=== PATIENT | female | born 1955 | race Two or more races ===

== ENCOUNTER 2021-11-12 13:53 | Inpatient (IN) | payer OTHER, MEDICAID ==
[~2021-11-12] VITALS: Ht 152.4 cm; Wt 75.4 kg
[2021-11-12] MEDS ORDERED: SODIUM CHLORIDE 0.9% 1,000 ML IVB ONE (14:15)
[2021-11-12] MEDS ORDERED: PROCHLORPERAZINE EDISYLATE 5 MG/ML 2ML VIAL IV ONE (14:15)
[2021-11-12 15:58] LABS: BUN/Creatinine Ratio 12.9; Calcium 9.5 mg/dL (8.5-10.1)
[2021-11-12 15:59] LABS: Basophils # (auto) 0.1 10 ^3/uL (0-0.2); Basophils % (auto) 0.8 % (0.0-2.0); Eosinophils # (auto) 0.1 10 ^3/uL (0-0.8); Eosinophils % (auto) 1.6 % (0.0-7.0); Hematocrit 45.2 % (36.0-46.0); Hemoglobin 14.9 g/dL (12.2-16.2); Lymphocytes # (auto) 1.4 10 ^3/uL (0.4-5.4); Lymphocytes % (auto) 18.2 % (10.0-50.0); Mean Corpuscular Hemoglobin 27.9 pg (28.0-32.0); Mean Corpuscular Volume 84.6 fL (80.0-100.0); Monocytes # (auto) 0.3 10 ^3/uL (0-1.3); Monocytes % (auto) 3.6 % (0.0-12.0); Neutrophils % (auto) 75.8 % (37.0-80.0); Red Blood Cells 5.34 10^6/uL (4.0-5.20); Red Cell Distribution Width 14.4 % (11.8-14.3); White Blood Cell 7.9 10^3/uL (4.4-10.8)
[2021-11-12 16:01] LABS: Bilirubin, Total 0.7 mg/dL (0.2-1.0); Total Protein 7.7 g/dL (6.4-8.2)
[2021-11-12] MEDS ORDERED: BACITRACIN INJ 50000 UNIT VIAL TOP ONE (17:30)
[2021-11-12] MEDS ORDERED: NITROGLYCERIN 0.4 MG SL TAB SL PRN (18:00)
[2021-11-12] MEDS ORDERED: MORPHINE SULFATE INJ 2 MG/ml SYRG IV PRN ×3 (18:00→21:15)
[2021-11-12] MEDS ORDERED: hydrALAZINE HCL 20 MG/ML VL IV PRN (18:15)
[2021-11-12] MEDS ORDERED: ONDANSETRON HCL 4 MG/2 ML VIAL IV PRN (18:15)
[2021-11-12] MEDS ORDERED: LABETALOL HCL 5 MG/ML 4ML SYRINGE IV PRN (18:15)
[2021-11-12] MEDS ORDERED: PANTOPRAZOLE 40 MG/10 ML VIAL INJ IV ONE (18:15)
[2021-11-12] MEDS: LACTATED RINGER'S 1,000 ML IV SCH (18:33)
[2021-11-12] MEDS ORDERED: LORazepam 0.5 MG TAB PO PRN (21:15)
[2021-11-12] MEDS ORDERED: DOCUSATE SOD 100 MG CAP PO PRN (21:15)
[2021-11-12 21:52] LABS: Magnesium 2.3 mg/dL (1.6-2.6)
[2021-11-12 22:50] LABS: Urine Specific Gravity 1.016 (1.001-1.035)
[2021-11-12 22:51] LABS: Urine Blood Trace /uL (Negative); Urine WBC 0-2 /hpf (0 - 5)
[2021-11-12 22:52] LABS: Urine Bacteria NONE SEEN /hpf (None Seen); Urine Mucus FEW (None Seen)
[2021-11-12 23:20] VITALS: BP 152/80
[2021-11-12 23:40] LABS: INR 1.09 (0.9-1.15); Partial Thromboplastin Time 29.3 sec (23.6-33.0)
[2021-11-12] MEDS: metroNIDAZOLE 500MG/100ML 100 ML IV SCH (23:41)
[2021-11-13 05:00] VITALS: BP 123/78
[2021-11-13 06:10] LABS: Basophils # (auto) 0 10 ^3/uL (0-0.2); Basophils % (auto) 0.4 % (0.0-2.0); Eosinophils # (auto) 0 10 ^3/uL (0-0.8); Eosinophils % (auto) 0.4 % (0.0-7.0); Hematocrit 37.6 % (36.0-46.0); Hemoglobin 12.9 g/dL (12.2-16.2); Lymphocytes # (auto) 2.2 10 ^3/uL (0.4-5.4); Mean Corpuscular Hemoglobin 28.7 pg (28.0-32.0); Mean Corpuscular Hgb Conc. 34.2 g/dL (32.0-36.0); Mean Corpuscular Volume 83.8 fL (80.0-100.0); Monocytes # (auto) 0.4 10 ^3/uL (0-1.3); Monocytes % (auto) 6.3 % (0.0-12.0); Neutrophils # (auto) 4.4 10 ^3/uL (1.6-8.6); Neutrophils % (auto) 61.9 % (37.0-80.0); Nucleated Red Blood Cells % 0.1 %; Red Blood Cells 4.49 10^6/uL (4.0-5.20); Red Cell Distribution Width 14.4 % (11.8-14.3); White Blood Cell 7.1 10^3/uL (4.4-10.8)
[2021-11-13 06:26] LABS: Magnesium 2.2 mg/dL (1.6-2.6); Potassium 3.6 mmol/L (3.5-5.1)
[2021-11-13 06:29] LABS: INR 1.07 (0.9-1.15); Partial Thromboplastin Time 29.8 sec (23.6-33.0)
[2021-11-13 06:33] LABS: Albumin 3.4 g/dL (3.4-5.0); Bilirubin, Total 0.6 mg/dL (0.2-1.0); CRP High Sensitivity 0.1 mg/dL (< 0.3); Calcium 8.4 mg/dL (8.5-10.1); Phosphorus 2.8 mg/dL (2.5-4.90); Total Protein 6.6 g/dL (6.4-8.2)
[2021-11-13] MEDS: metroNIDAZOLE 500MG/100ML 100 ML IV SCH ×3 (06:42→21:37)
[2021-11-13] MEDS: LACTATED RINGER'S 1,000 ML IV SCH ×2 (07:35→21:46)
[2021-11-13 08:24] VITALS: BP 152/80
[2021-11-13] MEDS: cefTRIAXone 1GM/50ML D5W 50 ML IV SCH (08:58)
[2021-11-13] MEDS ORDERED: ENOXAPARIN SOD 40 MG/0.4 ML SYRINGE SC SCH (10:00)
[2021-11-13] MEDS ORDERED: PANTOPRAZOLE 40 MG/10 ML VIAL INJ IV SCH (10:00)
[2021-11-13] MEDS ORDERED: LABETALOL HCL 5 MG/ML 4ML SYRINGE IV PRN (13:15)
[2021-11-13 13:20] VITALS: BP 147/76
[2021-11-13 16:48] VITALS: BP 137/72
[2021-11-13 22:36] VITALS: BP 138/77
[2021-11-14] MEDS: metroNIDAZOLE 500MG/100ML 100 ML IV SCH ×3 (05:15→22:19)
[2021-11-14 05:19] VITALS: BP 144/83
[2021-11-14 06:52] LABS: Basophils # (auto) 0 10 ^3/uL (0-0.2); Basophils % (auto) 0.6 % (0.0-2.0); Eosinophils # (auto) 0 10 ^3/uL (0-0.8); Eosinophils % (auto) 0.3 % (0.0-7.0); Hematocrit 37.4 % (36.0-46.0); Lymphocytes # (auto) 1.7 10 ^3/uL (0.4-5.4); Lymphocytes % (auto) 23.4 % (10.0-50.0); Mean Corpuscular Hgb Conc. 34.9 g/dL (32.0-36.0); Monocytes # (auto) 0.5 10 ^3/uL (0-1.3); Monocytes % (auto) 7.4 % (0.0-12.0); Neutrophils # (auto) 4.9 10 ^3/uL (1.6-8.6); Neutrophils % (auto) 68.3 % (37.0-80.0); Nucleated Red Blood Cells % 0.1 %; Red Cell Distribution Width 14.4 % (11.8-14.3); White Blood Cell 7.2 10^3/uL (4.4-10.8)
[2021-11-14 07:13] LABS: Albumin 3.3 g/dL (3.4-5.0); Calcium 8.5 mg/dL (8.5-10.1); Potassium 3.6 mmol/L (3.5-5.1)
[2021-11-14 07:15] LABS: BUN/Creatinine Ratio 12.5; Bilirubin, Total 0.7 mg/dL (0.2-1.0); Total Protein 6.6 g/dL (6.4-8.2)
[2021-11-14] MEDS: cefTRIAXone 1GM/50ML D5W 50 ML IV SCH (09:00)
[2021-11-14] MEDS ORDERED: ceFAZolin 1GM/50ML 100 ML IV ONE (09:28)
[2021-11-14 09:41] VITALS: BP 149/88
[2021-11-14 09:41] LABS: Urine Bacteria FEW /hpf (None Seen); Urine Blood Negative /uL (Negative); Urine Specific Gravity 1.011 (1.001-1.035); Urine WBC 1 /hpf (0 - 5)
[2021-11-14] MEDS ORDERED: BUPIVACAINE W/ EPINEPH 0.25% INJ 50ML MDV ONE (10:18)
[2021-11-14] MEDS ORDERED: SUCCINYLCHOLINE CHLORIDE 20 MG/ML 10ML VIAL IV ONE (10:19)
[2021-11-14] MEDS ORDERED: fentaNYL CITRATE 100 MCG/2 ML VL ONE (10:27)
[2021-11-14] MEDS ORDERED: MIDAZOLAM HCL 2MG/2ML 2ml VIAL (1mg/ml) ONE (10:27)
[2021-11-14] MEDS ORDERED: MEPERIDINE HCL (50 MG/ML) 1 ML VIAL ONE (10:28)
[2021-11-14 10:32] LABS: Alcohol, Urine < 3.0 mg/dL (0-10); Amphetamine Screen, Urine NEGATIVE (NEGATIVE); Barbiturate Scree,Urine NEGATIVE (NEGATIVE); Benzodiazephine Screen, Urine NEGATIVE (NEGATIVE); Cannabinoid Screen, Urine NEGATIVE (NEGATIVE); Cocaine Screen, Urine NEGATIVE (NEGATIVE); Opiate Scree,Urine NEGATIVE (NEGATIVE); Phencyclidine Screen, Urine NEGATIVE (NEGATIVE); Protein, Urine 13.2 mg/dL (0.0-11.9)
[2021-11-14] MEDS ORDERED: DexAMETHasone SOD PHOS 10MG/1ML VIAL INJ ONE (10:37)
[2021-11-14] MEDS ORDERED: PROPOFOL 10 MG/ML 20 ML IV ONE (10:37)
[2021-11-14] MEDS ORDERED: ROCURONIUM 10MG/ML 10ML VIAL IV ONE (10:38)
[2021-11-14] MEDS ORDERED: ONDANSETRON HCL 4 MG/2 ML VIAL ONE (11:07)
[2021-11-14] MEDS ORDERED: SUGAMMADEX 200mg/2ml Vial (100MG/ML) IV ONE (11:18)
[2021-11-14] MEDS ORDERED: ACETAMINOPHEN/CODEINE#3 (300/30mg) TAB PO PRN (11:30)
[2021-11-14] MEDS ORDERED: ONDANSETRON HCL 4 MG/2 ML VIAL IV PRN ×2 (11:30→11:45)
[2021-11-14] MEDS ORDERED: HYDROmorphone HCL 2 MG/ML VL/or syr IV PRN ×2 (11:30→14:45)
[2021-11-14] MEDS ORDERED: D5W/SOD CHL 0.45%/KCL 20MEQ 1,000 ML IV SCH (11:30)
[2021-11-14] MEDS ORDERED: MIDAZOLAM HCL 2MG/2ML 2ml VIAL (1mg/ml) IV PRN (11:45)
[2021-11-14] MEDS ORDERED: MORPHINE SULFATE 4 MG/ML SYR/VIAL IV PRN (11:45)
[2021-11-14] MEDS ORDERED: ePHEDrine SULFATE 50 MG/ML AMP IV PRN (11:45)
[2021-11-14] MEDS ORDERED: HYDROmorphone HCL 2 MG/ML VL/or syr ONE (11:49)
[2021-11-14] MEDS: HYDROmorphone HCL 2 MG/ML VL/or syr IV PRN ×3 (11:50→12:20)
[2021-11-14] MEDS: LABETALOL HCL 5 MG/ML 4ML SYRINGE IV PRN ×3 (12:10→13:05)
[2021-11-14] MEDS: hydrALAZINE HCL 20 MG/ML VL IV PRN ×4 (12:40→13:30)
[2021-11-14] MEDS: HYDROcodone-ACET 5/325MG TAB PO PRN (14:34)
[2021-11-14 16:36] VITALS: BP 140/72
[2021-11-14] MEDS ORDERED: cefTRIAXone 1GM/50ML D5W 50 ML IV ONE (18:00)
[2021-11-14] MEDS: D5W/SOD CHL 0.45%/KCL 20MEQ 1,000 ML IV SCH (18:48)
[2021-11-14 22:13] VITALS: BP 130/76
[2021-11-15] MEDS: HYDROcodone-ACET 5/325MG TAB PO PRN (02:35)
[2021-11-15 04:59] VITALS: BP 149/79
[2021-11-15] MEDS: D5W/SOD CHL 0.45%/KCL 20MEQ 1,000 ML IV SCH (05:38)
[2021-11-15 05:39] LABS: Basophils # (auto) 0 10 ^3/uL (0-0.2); Basophils % (auto) 0.1 % (0.0-2.0); Eosinophils # (auto) 0 10 ^3/uL (0-0.8); Hematocrit 35.2 % (36.0-46.0); Hemoglobin 12.3 g/dL (12.2-16.2); Lymphocytes # (auto) 1.1 10 ^3/uL (0.4-5.4); Lymphocytes % (auto) 10.1 % (10.0-50.0); Mean Corpuscular Hemoglobin 29.1 pg (28.0-32.0); Mean Corpuscular Volume 83.1 fL (80.0-100.0); Monocytes # (auto) 0.8 10 ^3/uL (0-1.3); Neutrophils # (auto) 9.1 10 ^3/uL (1.6-8.6); Neutrophils % (auto) 82.8 % (37.0-80.0); Red Blood Cells 4.24 10^6/uL (4.0-5.20); Red Cell Distribution Width 14.7 % (11.8-14.3)
[2021-11-15] MEDS: metroNIDAZOLE 500MG/100ML 100 ML IV SCH ×2 (05:39→13:54)
[2021-11-15 05:54] LABS: Albumin 3.2 g/dL (3.4-5.0); BUN/Creatinine Ratio 9.3; Calcium 8.2 mg/dL (8.5-10.1); Potassium 3.6 mmol/L (3.5-5.1)
[2021-11-15 05:56] LABS: Bilirubin, Total 0.6 mg/dL (0.2-1.0); Total Protein 6.4 g/dL (6.4-8.2)
[2021-11-15 08:54] VITALS: BP 134/62
[2021-11-15] MEDS ORDERED: cefTRIAXone 1GM/50ML D5W 50 ML IV SCH (09:00)
[2021-11-15] MEDS ORDERED: PANTOPRAZOLE 40 MG/10 ML VIAL INJ IV SCH (10:00)
[2021-11-15 12:57] VITALS: BP 126/62
[2021-11-15 17:02] VITALS: BP 140/74
== END 2021-11-15 19:20 | disposition home or self-care (01) | DRG 418 ==
LOC: ER 13:53 → EDBD 13:53 → OVERFLOW 17:48 → WEST WING 23:02
PROVIDERS: ADMIT Hospitalist; ATTEND Internal Medicine
PROC: 0FT44ZZ Resection of Gallbladder, Percutaneous Endoscopic Approach (ICD-10-PCS; principal; 2021-11-14 10:25)
DX: K80.00 Calculus of gallbladder with acute cholecystitis without obstruction (principal); I16.9 Hypertensive crisis, unspecified; E66.01 Morbid (severe) obesity due to excess calories; E78.00 Pure hypercholesterolemia, unspecified; E78.5 Hyperlipidemia, unspecified; K57.90 Diverticulosis of intestine, part unspecified, without perforation or abscess without bleeding; K83.8 Other specified diseases of biliary tract; N20.0 Calculus of kidney; Z20.822 Contact with and (suspected) exposure to COVID-19; Z68.32 Body mass index [BMI] 32.0-32.9, adult
CPT/HCPCS: 36415; 70450; 71045; 74176; 74181; 76705; 78226; 80053; 80061; 80307; 81001; 82550; 82728; 83036; 83615; 83690; 83735; 83880; 84100; 84156; 84443; 84484; 85025; 85379; 85610; 85652; 85730; 86141; 86850; 86900; 86901; 87040; 87086; 93005; 96361; 96365; 96375; C9113; G0378; J0330; J0690; J0696; J1100; J2250; J2405; J2704; J3490

== ENCOUNTER 2023-04-20 21:37 | Emergency (ER) | payer OTHER, MEDICAID ==
[~2023-04-20] VITALS: Ht 152.4 cm; Wt 62.2 kg
[2023-04-21] MEDS ORDERED: IBUPROFEN 600 MG TAB PO ONE (00:15)
[2023-04-21] MEDS ORDERED: IBUP-1454 PO (00:59)
[2023-04-21] MEDS ORDERED: METH-1181 PO (00:59)
[2023-04-21] MEDS ORDERED: DICL1GEL73 TD (01:29)
[2023-04-21 01:37] VITALS: BP 137/88; PULSE 80; RESP 16; TEMP 98; O2SAT 97
== END 2023-04-21 01:38 | disposition home or self-care (01) ==
LOC: ER 21:37
DX: S16.1XXA Strain of muscle, fascia and tendon at neck level, initial encounter (principal); S09.90XA Unspecified injury of head, initial encounter; M25.561 Pain in right knee; E78.5 Hyperlipidemia, unspecified; Z79.1 Long term (current) use of non-steroidal anti-inflammatories (NSAID); Z79.899 Other long term (current) drug therapy; V43.52XA Car driver injured in collision with other type car in traffic accident, initial encounter; Y93.89 Activity, other specified; Y92.410 Unspecified street and highway as the place of occurrence of the external cause; Y99.8 Other external cause status
CPT/HCPCS: 70450; 72125; 73562

== ENCOUNTER 2025-04-22 10:30 | Emergency (ER) | payer OTHER, MEDICAID ==
[~2025-04-22] VITALS: Ht 152.4 cm; Wt 66.4 kg
[~2025-04-22 10:30] MED LIST: DICL1GEL73 TD; IBUP-1454 PO; METH-1181 PO
--- NOTE | 2025-04-22 11:21 | ED.PDOC ---
GI ASSESSMENT HPI Comments La Youngblood is a 69-year-old female with past medical history of GERD, dyslipidemia and essential hypertension. The patient came today to the ED with chief complain of 3 days of epigastric abdominal pain, 7/10, continue, burning like, no irradiates, associated with nausea; the patient took "peptobismol' and "apple cidar vinegar" without improvement. On further questioning the patient reports she has an appointment for GI for GERD. Today, the epigastric pain worsen to 8/10 and BP was >200/100 at home, this prompted her visit to the ED. The patient denies headache, visual disturbances, chest pain, palpitation, back pain, numbness, tingling, weakness, diarrhea, constipation, vomit, fever, chills or other symptoms. In the ED BP: 204/130mmHg. HR: 88bpm. EKG: Sinus rhythm, RSR in V1 and V2 , RVH, no ST elevation or depression. The patient will be further assessed. Chief Complaint: Abdominal Pain Time Seen by MD: 10:32 Reviewed Notes: Nurses Notes, Medications, Allergies Allergies: Coded Allergies: NO KNOWN ALLERGIES (Unverified , 05/02/23) Home Meds Active Scripts Diclofenac Sodium (Topical) (Diclofenac Sodium) 1 % Gel, 1 % TD QID PRN for 30 Days, #1 GEL Prov:MOISE NORMANP 04/21/23 Ibuprofen (Ibuprofen) 600 Mg Tab, 1 TAB PO TID PRN for 14 Days, #42 TAB Prov:MOISE NORMAN 04/21/23 Methocarbamol (Methocarbamol) 500 Mg Tab, 500 MG PO TID PRN for 14 Days, #42 TAB Prov:MOISE NORMAN 04/21/23 Information Source: Patient Mode of Arrival: Ambulatory Timing: Days Duration: Since onset Quality: Burning Severity: Mild Recent: None Associated sign and symptoms: Nausea Past Medical History PAST MEDICAL HISTORY: GERD, High Lipids, HTN Surgical History: Cholecystectomy RECREATIONAL THERAPY AIDE History: Denies all RECREATIONAL THERAPY AIDE Hx Family History Family History: Reviewed,noncontributory to illness Social History Smoker: Non-Smoker Alcohol: Denies ETOH Use Drugs: Denies Drug Use Constitutional: denies: chills, diaphoresis, fatigue, fever, malaise, sweats, weakness, others EENTM: denies: blurred vision, double vision, ear bleeding, ear discharge, ear drainage, ear pain, ear ringing, eye pain, eye redness, hearing loss, mouth pain, mouth swelling, nasal discharge, nose bleeding, nose congestion, nose pain, photophobia, tearing, throat pain, throat swelling, voice changes, others Respiratory: denies: cough, hemoptysis, orthopnea, SOB at rest, shortness of breath, SOB with excertion, stridor, wheezing, others Cardiovascular: denies: chest pain, dizzy spells, diaphoresis, Dyspnea on exertion, edema, irregular heart beat, left arm pain, lightheadedness, palpitations, PND, syncope, others Gastrointestinal: reports: abdominal pain, nausea; denies: abdomen distended, blood streaked bowels, constipated, diarrhea, dysphagia, difficulty swallowing, hematemesis, melena, poor appetite, poor fluid intake, rectal bleeding, rectal pain, vomiting, others Genitourinary: denies: abnormal vagina bleeding, burning, dyspareunia, dysuria, flank pain, frequency, hematuria, incontinence, pain, , vagina discharge, urgency, others Neurological: denies: dizziness, fainting, headache, left sided numbness, left sided weakness, numbness, paresthesia, pre-existing deficit, right sided numbness, right sided weakness, seizure, speech problems, tingling, tremors, weakness, others Musculoskeletal: denies: back pain, gout, joint pain, joint swelling, muscle pain, muscle stiffness, neck pain, others Integumetry: denies: bruises, change in color, change in hair/nails, dryness, laceration, lesions, lumps, rash, wounds, others Allergic/Immunocompromised: denies: Difficulty Healing, Frequent Infections, Hives, Itching, others Hematologic/Lymphatic: denies: anemia, blood clots, easy bleeding, easy bruising, swollen glands, others Endocrine: denies: excessive hunger, excessive sweating, excessive thirst, excessive urination, flushing, intolerance to cold, intolerance to heat, unexplained weight gain, unexplained weight loss, others Psychiatric: denies: anxiety, bipolar disorder, depression, hopeless, panic disorder, schizophrenia, sleepless, suicidal, others Physical Exam Exam Comments Alert, Oriented x3. General Appearance: No Apparent Distress, Normal HEENT: Normal ENT Inspection, Pharynx Normal, TMs Normal Neck: Full Range of Motion, Non-Tender, Normal, Normal Inspection Respiratory: Chest Non-Tender, Lungs Clear, No Accessory Muscle Use, No Respiratory Distress, Normal Breath Sounds Cardiovascular: No Edema, No JVD, No Murmur, No Gallop, Normal Peripheral Pulses, Regular Rate/Rhythm Breast Exam: Deferred Gastrointestinal: Normal Bowel Sounds, Soft, Tenderness (Epigastric area is tender to deep palpation. ) Genitalia: Deferred Pelvic: Deferred Rectal: Deferred Extremities: No calf tenderness, Normal capillary refill, Normal inspection, Normal range of motion, Non-tender, No pedal edema Musculoskeletal : Apperance: Normal Neurologic: Alert, theoretical physicist II-XII nml as Tested, No Motor Deficits, Normal Affect, Normal Mood, No Sensory Deficits, Other (Sensitivity, motor and Strength preserved, no neuronal deficit on face or extremities. Cranial nerves preserved. ) Cerebellar Function: Normal Reflexes: Normal Skin: Dry, Normal Color, Warm Lymphatic: No Adenopathy EKG EKG : Pulse Rate (adult): 79 Lizella: Normal Cardiac Rhythm: NSR Hypertrophy: RVH Comments RSR' in V1 and V2 Was a procedure done? Was a procedure done?: No GI differential Dx Differential Diagnosis: Gastritis/PUD Other Differential Diagnosis GERD. X-Ray, Labs, Meds, VS Vital Signs Date Time Temp Pulse Resp B/P (MAP) Pulse Ox O2 Delivery O2 Flow Rate FiO2 04/22/25 12:23 67 18 154/74 (100) 97 04/22/25 11:59 79 04/22/25 11:41 77 18 98 Room Air 04/22/25 11:41 98.2 77 18 177/100 (125) 98 98.2 04/22/25 11:30 154/74 04/22/25 10:41 79 04/22/25 10:32 97.7 88 18 204/130 100 97.7 Lab Test 04/22/25 13:56 04/22/25 12:04 Range/Units Troponin I High Sensitivity 3 L 3 L </=34 ng/L White Blood Count 5.5 4.4-10.8 10^3/uL Red Blood Count 4.89 4.0-5.20 10^6/uL Hemoglobin 14.2 12.2-16.2 g/dL Hematocrit 42.7 36.0-46.0 % Mean Corpuscular Volume 87.3 80.0-100.0 fL Mean Corpuscular Hemoglobin 29.0 28.0-32.0 pg Mean Corpuscular Hemoglobin Concent 33.2 32.0-36.0 g/dL Red Cell Distribution Width 14.8 H 11.8-14.3 % Platelet Count 169 140-450 10^3/uL Mean Platelet Volume 9.8 6.9-10.8 fL Neutrophils (%) (Auto) 60.1 37.0-80.0 % Lymphocytes (%) (Auto) 31.8 10.0-50.0 % Monocytes (%) (Auto) 6.6 0.0-12.0 % Eosinophils (%) (Auto) 0.9 0.0-7.0 % Basophils (%) (Auto) 0.6 0.0-2.0 % Neutrophils # (Auto) 3.3 1.6-8.6 10 ^3/uL Lymphocytes # (Auto) 1.8 0.4-5.4 10 ^3/uL Monocytes # (Auto) 0.4 0-1.3 10 ^3/uL Eosinophils # (Auto) 0 0-0.8 10 ^3/uL Basophils # (Auto) 0 0-0.2 10 ^3/uL Nucleated Red Blood Cells 0.0 % Sodium Level 140 136-145 mmol/L Potassium Level 3.8 3.5-5.1 mmol/L Chloride Level 105 98-107 mmol/L Carbon Dioxide Level 26 20-31 mmol/L Anion Gap 9 5-15 Blood Urea Nitrogen 11 9-23 mg/dL Creatinine 0.72 0.550-1.02 mg/dL Glomerular Filtration Rate Calc 89 >90 mL/min BUN/Creatinine Ratio 15.3 10.0-20.0 Serum Glucose 77 74-106 mg/dL Calcium Level 8.7 8.7-10.4 mg/dL Current Medications Medications (Trade) Dose Ordered Sig/Mike Route Start Time Stop Time Status Last Admin Pantoprazole Sodium (Protonix Tablet) 40 mg ONCE ONCE PO 04/22/25 11:30 04/22/25 11:31 DC 04/22/25 11:47 X-Ray, Labs, Meds, VS Comment 11:56 The patient has been re-evaluated VS: BP:177/100mmHg HR: 77bpm CBC, BMP, Troponin are still pending at this time 13:03 The patient has veen re-evaluated Epigastric pain improved after protonics BP has improved to 154/74 CBC and BMP: unremarkable Hb: 14.2 Troponin: 3 Time of 1ST Reevaluation: 11:56 Reevaluation 1ST: Improved Time of 2ND Reevaluation: 13:03 Reevaluation 2ND: Improved Patient Education/Counseling: Diagnosis, Treatment, Prognosis, Need For Follow Up Family Education/Counseling: No Family Present SEPSIS Sepsis Screen Date sepsis recognized/suspect: Apr 22, 2025 Time Sepsis recognized/suspect: 103 Recent Procedure: No On Antibiotic Therapy: No Respiratory Rate >20: No Heart Rate >90: No Temp<36 C (96.8 F) or >38.3 C: No SBP <90 or MAP <65 mmHG: No New Acute Mental Status Change: No Is the patient on CPAP, BIPAP,: No Physician Orders Electrocardigram (04/22/25 10:36) Troponin-I Hs (04/22/25 14:17) Chest Xray 1 View (04/22/25 11:17) Electrocardigram (04/22/25 12:17) Electrocardigram (04/22/25 14:17) Urinalysis (04/22/25 11:17) Communication Order (04/22/25 11:25) Vital Signs Date Time Temp Pulse Resp B/P (MAP) Pulse Ox O2 Delivery O2 Flow Rate FiO2 04/22/25 12:23 67 18 154/74 (100) 97 04/22/25 11:59 79 04/22/25 11:41 77 18 98 Room Air 04/22/25 11:41 98.2 77 18 177/100 (125) 98 98.2 04/22/25 11:30 154/74 04/22/25 10:41 79 04/22/25 10:32 97.7 88 18 204/130 100 97.7 Laboratory Tests Test 04/22/25 12:04 White Blood Count 5.5 10^3/uL (4.4-10.8) Medications Medications Dose Ordered Sig/Mike Route Start Time Stop Time Status Last Admin Dose Admin Pantoprazole Sodium 40 mg ONCE ONCE PO 04/22/25 11:30 04/22/25 11:31 DC 04/22/25 11:47 Departure 1 Departure Time of Disposition: 13:33 Impression: Primary Impression: Gastritis Qualified Codes: K29.00 - Acute gastritis without bleeding Additional Impressions: GERD (gastroesophageal reflux disease) Qualified Codes: K21.9 - Gastro-esophageal reflux disease without esophagitis Hypertensive crisis Disposition: 01 HOME / SELF CARE / HOMELESS Condition: Good Additional Instructions: Please read all instructions provided in this packet carefully. You MUST follow-up with your primary care/family doctor in 1 to 2 days. If you are unable to see your primary care/family doctor, please return to our emergency room for re-assessment and re-evaluation in 1 to 2 days. Return to the emergency room here in our facility or to the nearest ER [facility] if your symptoms change or worsen. CONSULTATIONS: you MUST Follow-up for consultation as soon as possible with: -your specialist GI doctor in 1-2 days. You MUST call the consultants office yourself to make an appointment. You may need to arrange that through your insurance and/or your primary/family doctor. If you are unable to see the outreach consultant in 1 to 2 days, you must return to our emergency room (or any other ER of your choice) for re-assessment and re- evaluation. Adequate fluid hydration. Although you have been discharged from the Emergency Department, this does not mean that you have a "clean bill of health". No definitive diagnosis for your symptoms has been made today. It is possible that you are in the process of developing a serious illness. This is why you must return to the ED without fail if any new or worsening symptoms develop. e-Prescriptions Sucralfate (CARAFATE SUSP) 1 Gm/10 Ml Ss 10 ML PO BID for 5 Days, #100 ML 1 Refill Prov: TEODORA ALY MD 04/22/25 Pantoprazole Sodium Sesquihydr (Protonix) 40 Mg Tab 40 MG PO DAILY for 10 Days, #10 TAB Prov: TEODORA ALY MD 04/22/25 Discharged With: Self Comments Goals of care discussed with the patient > 35 min. Discussed plan of care with Dr. Aly Code status: Full code PCP: Dr. Stauffer Plan discussed with: Patient, the patient agrees with the plan. Critical Care Note Critical Care Time?: No Stability Stability form required: No Heart Score Heart Score: Heart Score Response (Comments) Value History N/A 0 EKG N/A 0 Age N/A 0 Risk Factors N/A 0 Troponin N/A 0 Total 0 MYKE DURAN Apr 22, 2025 11:21 TEODORA ALY MD Apr 22, 2025 14:48
[2025-04-22 11:41] VITALS: TEMP 98.2
--- NOTE | 2025-04-22 11:41 | DVH ---
CHEST RADIOGRAPH Indication: hypertensive urgency Technique: Single frontal view of the chest was obtained COMPARISON: CXR1 on DOS: 11/14/21, CHEST XRAY 1 VIEW on DOS: 11/14/21 FINDINGS: Lines and Tubes: None Lungs: Clear Pleura: No effusion. No pneumothorax. Cardiomediastinal contours: Unremarkable Bones: Unremarkable IMPRESSION: No acute disease.
[2025-04-22] MEDS: PANTOPRAZOLE 40 MG TAB PO ONE (11:47)
[2025-04-22 12:24] LABS: Hematocrit 42.7 % (36.0-46.0); Hemoglobin 14.2 g/dL (12.2-16.2); Mean Corpuscular Hemoglobin 29.0 pg (28.0-32.0); Mean Corpuscular Volume 87.3 fL (80.0-100.0); Nucleated Red Blood Cells % 0.0 %
[2025-04-22 12:32] LABS: Chloride 105 mmol/L (98-107); Potassium 3.8 mmol/L (3.5-5.1); Sodium 140 mmol/L (136-145)
[2025-04-22 12:33] LABS: Anion Gap 9 (5-15); Carbon Dioxide 26 mmol/L (20-31)
[2025-04-22 12:34] LABS: Calcium 8.7 mg/dL (8.7-10.4)
[2025-04-22 12:38] LABS: BUN/Creatinine Ratio 15.3 (10.0-20.0); Blood Urea Nitrogen 11 mg/dL (9-23); Glucose 77 mg/dL (74-106)
[2025-04-22] MEDS ORDERED: SUCR1SUS26 PO (14:48)
[2025-04-22] MEDS ORDERED: PANT40TA2 PO (14:48)
[2025-04-22 15:08] VITALS: BP 146/94; PULSE 84; RESP 18; O2SAT 97
--- NOTE | 2025-04-23 03:03 | ECG ---
[facility] Test Date: 2025-04-22 Test Time: 10:41:25 Pat Name: STEVEN MAYORGA Department: ED Room: Gender: F Wire Tester: JOVON : 1955 Requested By: MYKE DURAN Order Number: [id number] Reading MD: Oren Velasco Measurements Intervals Vantage Rate: 79 P: 54 PA: 143 QRS: 57 QRSD: 103 T: 45 QT: 438 QTc: 503 Interpretive Statements Sinus rhythm RSR' in V1 or V2, right VCD or RVH Prolonged QT interval Baseline wander in lead(s) I,II,aVR,V2 Electronically Signed On 04-23-2025 18:48:11 PDT by Oren Velasco Please click the below link to view image of tracing.
== END 2025-04-22 15:19 | disposition home or self-care (01) ==
LOC: ER 10:30
DX: K29.00 Acute gastritis without bleeding (principal); K21.9 Gastro-esophageal reflux disease without esophagitis; I16.9 Hypertensive crisis, unspecified; E78.5 Hyperlipidemia, unspecified; I10 Essential (primary) hypertension; Z90.49 Acquired absence of other specified parts of digestive tract; Z79.899 Other long term (current) drug therapy
CPT/HCPCS: 36415; 71045; 80048; 84484; 85025; 93005

== ENCOUNTER 2025-05-19 12:21 | Emergency (ER) | payer OTHER, MEDICAID ==
[~2025-05-19] VITALS: Ht 152.4 cm; Wt 66.6 kg
[~2025-05-19 12:21] MED LIST changes: +PANT40TA2 PO; +SUCR1SUS26 PO
[2025-05-19 12:23] VITALS: BP 148/86; PULSE 82; RESP 16; TEMP 97.9; O2SAT 97
--- NOTE | 2025-05-19 13:28 | ED.PDOC ---
PHARMACEUTICAL SALES SPECIALIST HPI Comments A 69 YEAR OLD FEMALE PRESENTS TO THE ED WITH COMPLAINT OF VAGINAL BLEEDING AND PELVIC CRAMPING. PATIENT STATES HE HAS BEEN EXPERIENCING VAGINAL BLEEDING AND PELVIC CRAMPING FOR THE PAST 4 DAYS. PATIENT REPORTS SHE HAS ALSO BEEN EXPERIENCING PAINFUL URINATION AND INCREASED URINARY FREQUENCY. PATIENT NOTES THAT SHE HAD THE SAME ISSUE IN THE PAST ABOUT 6 MONTHS AGO, BUT NOTES THAT IT WENT AWAY AND CAME BACK 4 DAYS AGO. PATIENT DENIES VAGINAL DISCHARGE, FLANK PAIN, FEVER, CHILLS, SHORTNESS OF BREATH, CHEST PAIN, ABDOMINAL PAIN, NAUSEA, VOMITING, HEADACHE, OR OTHER COMPLAINTS. NO OTHER SYMPTOMS OR MODIFYING FACTORS AT THIS TIME. PATIENT IS ALERT, ORIENTED X 4, AND HAS STEADY GAIT. Chief Complaint: Vaginal Bleed Time Seen by MD: 12:39 Reviewed Notes: Nurses Notes, Medications, Allergies Allergies: Coded Allergies: NO KNOWN ALLERGIES (Unverified , 05/02/23) Home Meds Active Scripts Naproxen (Naproxen) 500 Mg Tab, 500 MG PO BID, #30 TAB Prov:VIJI MOON 05/19/25 Sucralfate (CARAFATE SUSP) 1 Gm/10 Ml Ss, 10 ML PO BID for 5 Days, #100 ML 1 Refill Prov:TEODORA ALY MD 04/22/25 Pantoprazole Sodium Sesquihydr (Protonix) 40 Mg Tab, 40 MG PO DAILY for 10 Days, #10 TAB Prov:TEODORA ALY MD 04/22/25 Diclofenac Sodium (Topical) (Diclofenac Sodium) 1 % Gel, 1 % TD QID PRN for 30 Days, #1 GEL Prov:MOISE NORMAN 04/21/23 Ibuprofen (Ibuprofen) 600 Mg Tab, 1 TAB PO TID PRN for 14 Days, #42 TAB Prov:MOISE NORMAN 04/21/23 Methocarbamol (Methocarbamol) 500 Mg Tab, 500 MG PO TID PRN for 14 Days, #42 TAB Prov:MOISE NORMAN 04/21/23 Information Source: Patient Mode of Arrival: Ambulatory Timing: Days Prehospital treatment: None Severity: Moderate Vaginal Discharge: None Bleeding Quality: Bright Red Vaginal Mass: None Onset Of Mass/Bleeding: Spontaneous Sexual Activity: Neither Last Consensual [place]: Unknown Control: None Blood Type: Unknown Symptoms of Possible : None Associated Signs and Symptoms: Vaginal Bleeding Past Medical History PAST MEDICAL HISTORY: GERD, High Lipids, HTN Surgical History: Cholecystectomy RUBBER ENGRAVER History: Denies all RUBBER ENGRAVER Hx Family History Family History: Reviewed,noncontributory to illness Social History Smoker: Non-Smoker Alcohol: Denies ETOH Use Drugs: Denies Drug Use Lives In: Home Constitutional: denies: chills, diaphoresis, fatigue, fever, malaise, sweats, weakness, others EENTM: denies: blurred vision, double vision, ear bleeding, ear discharge, ear drainage, ear pain, ear ringing, eye pain, eye redness, hearing loss, mouth pain, mouth swelling, nasal discharge, nose bleeding, nose congestion, nose pain, photophobia, tearing, throat pain, throat swelling, voice changes, others Respiratory: denies: cough, hemoptysis, orthopnea, SOB at rest, shortness of breath, SOB with excertion, stridor, wheezing, others Cardiovascular: denies: chest pain, dizzy spells, diaphoresis, Dyspnea on exertion, edema, irregular heart beat, left arm pain, lightheadedness, palpitations, PND, syncope, others Gastrointestinal: denies: abdomen distended, abdominal pain, blood streaked bowels, constipated, diarrhea, dysphagia, difficulty swallowing, hematemesis, melena, nausea, poor appetite, poor fluid intake, rectal bleeding, rectal pain, vomiting, others Genitourinary: reports: abnormal vagina bleeding, pain (PELVIC CRAMPING); denies: burning, dyspareunia, dysuria, flank pain, frequency, hematuria, incontinence, , vagina discharge, urgency, others Neurological: denies: dizziness, fainting, headache, left sided numbness, left sided weakness, numbness, paresthesia, pre-existing deficit, right sided numbness, right sided weakness, seizure, speech problems, tingling, tremors, weakness, others Musculoskeletal: denies: back pain, gout, joint pain, joint swelling, muscle pain, muscle stiffness, neck pain, others Integumetry: denies: bruises, change in color, change in hair/nails, dryness, laceration, lesions, lumps, rash, wounds, others Allergic/Immunocompromised: denies: Difficulty Healing, Frequent Infections, Hives, Itching, others Hematologic/Lymphatic: denies: anemia, blood clots, easy bleeding, easy bruising, swollen glands, others Endocrine: denies: excessive hunger, excessive sweating, excessive thirst, excessive urination, flushing, intolerance to cold, intolerance to heat, unexplained weight gain, unexplained weight loss, others Psychiatric: denies: anxiety, bipolar disorder, depression, hopeless, panic disorder, schizophrenia, sleepless, suicidal, others All Other Systems: Reviewed and Negative Physical Exam General Appearance: No Apparent Distress, Normal HEENT: Normal ENT Inspection, PERRL/EOMI, Pharynx Normal, TMs Normal Neck: Full Range of Motion, Non-Tender, Normal, Normal Inspection Respiratory: Chest Non-Tender, Lungs Clear, No Accessory Muscle Use, No Respiratory Distress, Normal Breath Sounds Cardiovascular: No Edema, No JVD, No Murmur, No Gallop, Normal Peripheral Pulses, Regular Rate/Rhythm Breast Exam: Deferred Gastrointestinal: No Organomegaly, Non Tender, No Pulsatile Mass, Normal Bowel Sounds, Soft Genitalia: Deferred Pelvic: Normal External Exam, Vaginal Bleeding Rectal: Deferred Extremities: No calf tenderness, Normal capillary refill, Normal inspection, Normal range of motion, Non-tender, No pedal edema Musculoskeletal : Apperance: Normal Neurologic: Alert, roof tiler II-XII nml as Tested, No Motor Deficits, Normal Affect, Normal Mood, No Sensory Deficits Cerebellar Function: Normal Reflexes: Normal Skin: Dry, Normal Color, Warm Peripheral Pulses: 2+ carotid (R), 2+ carotid (L) Lymphatic: No Adenopathy Was a procedure done? Was a procedure done?: Yes Sedation Sedation?: No Pelvic Exam Vaginal Discharge: None Vaginal Lesions: None Vaginal Mass: None Bleeding Quality: Bright Red Cervix: os closed Notes SPECULUM EXAMINATION DONE. VAGINAL BLEEDING WAS NOTED, BUT NO BLOOD CLOTS WERE SEEN. Differential Diagnosis (RUBBER ENGRAVER) Vaginal Bleeding: Blood Loss Anemia, Myomatous Uterus, UTI, Vaginitis, Other (DYSFUNCTIONAL UTERINE FIBROID) Mass / Lesion: N/A Vaginal Discharge: UTI, N/A X-Ray, Labs, Meds, VS Vital Signs Date Time Temp Pulse Resp B/P (MAP) Pulse Ox O2 Delivery O2 Flow Rate FiO2 05/19/25 12:23 97.9 82 16 148/86 97 97.9 Lab Test 05/19/25 13:53 05/19/25 13:00 Range/Units White Blood Count 6.1 4.4-10.8 10^3/uL Red Blood Count 4.91 4.0-5.20 10^6/uL Hemoglobin 14.7 12.2-16.2 g/dL Hematocrit 44.1 36.0-46.0 % Mean Corpuscular Volume 89.9 80.0-100.0 fL Mean Corpuscular Hemoglobin 29.8 28.0-32.0 pg Mean Corpuscular Hemoglobin Concent 33.2 32.0-36.0 g/dL Red Cell Distribution Width 14.2 11.8-14.3 % Platelet Count 171 140-450 10^3/uL Mean Platelet Volume 9.4 6.9-10.8 fL Neutrophils (%) (Auto) 63.4 37.0-80.0 % Lymphocytes (%) (Auto) 28.1 10.0-50.0 % Monocytes (%) (Auto) 6.6 0.0-12.0 % Eosinophils (%) (Auto) 1.1 0.0-7.0 % Basophils (%) (Auto) 0.8 0.0-2.0 % Neutrophils # (Auto) 3.9 1.6-8.6 10 ^3/uL Lymphocytes # (Auto) 1.7 0.4-5.4 10 ^3/uL Monocytes # (Auto) 0.4 0-1.3 10 ^3/uL Eosinophils # (Auto) 0.1 0-0.8 10 ^3/uL Basophils # (Auto) 0.1 0-0.2 10 ^3/uL Nucleated Red Blood Cells 0.1 % Prothrombin Time 10.5 9.3-11.8 sec Prothrombin Time INR 0.99 0.9-1.15 Sodium Level 140 136-145 mmol/L Potassium Level 4.2 3.5-5.1 mmol/L Chloride Level 107 98-107 mmol/L Carbon Dioxide Level 21 20-31 mmol/L Anion Gap 12 5-15 Blood Urea Nitrogen 14 9-23 mg/dL Creatinine 0.66 0.550-1.02 mg/dL Glomerular Filtration Rate Calc 94 >90 mL/min BUN/Creatinine Ratio 21.2 H 10.0-20.0 Serum Glucose 83 74-106 mg/dL Calcium Level 9.0 8.7-10.4 mg/dL Urine Color Red H Yellow Urine Clarity Ex.turbid Clear Urine pH 7.0 5.0-9.0 Urine Specific [place] 1.017 1.001-1.035 Urine Protein 2+ H Negative Urine Ketones Negative Negative Urine Blood 3+ H Negative /uL Urine Nitrite Negative Negative Urine Bilirubin Negative Negative Urine Urobilinogen Normal Negative mg/dL Urine Leukocyte Esterase 1+ Negative /uL Urine RBC 04982 0 - 4 /hpf Urine Microscopic WBC 0-5 /HPF Urine Squamous Epithelial Cells None seen <5 /hpf Urine Bacteria None seen None Seen /hpf Urine Glucose Normal Normal mg/dL INDICATION: VAGINAL BLEEDING TECHNIQUE: Multiple real-time grayscale transabdominal and transvaginal sonographic images along with color and duplex Doppler of the uterus and ovaries were obtained. COMPARISON: CT ABD PELVIS WO CONTRAST on DOS: 11/12/21 FINDINGS: The uterus measures 7.8 x 4.6 x 3.6 cm. The uterus is heterogeneous. There is a intrauterine mass measuring 1 cm suggestive of a fibroid. The endometrial stripe measures 0.9cm. The right ovary measures 2.8 x 2.2 x 1.4 cm. The left ovary measures 2.5 x 1.0 x 1.6 cm. Subsequent color and duplex Doppler interrogation of the ovaries demonstrated symmetric vascular flow to both ovaries, though this does not exclude the possibility of torsion due to the dual blood supply. IMPRESSION: Heterogeneous uterus. There is a intrauterine mass measuring 1 cm suggestive of a fibroid. ATED BY: KERVIN BOYKIN MD DICTATED DATE/TIME: 05/19/251425 SIGNED BY: KERVIN BOYKIN MD SIGNED DATE/TIME: 05/19/251425 CC: X-Ray, Labs, Meds, VS Comment EXTERNAL MEDICAL RECORDS REVIEWED: [NONE] INDEPENDENT HISTORIANS: [NONE] SOCIAL DETERMINANTS OF HEALTH: [NONE] LABS ORDERED: CBC, BMP, UA REVIEWED AND INTERPRETED RESULTS: BLOOD 3+ IMAGING ORDERED: US PELVIS TREATMENTS ORDERED: NONE PROCEDURES PERFORMED: NONE CRITICAL CARE TIME: NONE I HAVE DISCUSSED THE PATIENT WITH THE ATTENDING PHYSICIAN DR. WINSTON AND HE AGREES WITH THE PATIENT'S PLAN OF CARE AND DISPOSITION. 1520: I HAVE CONSULTED THE ON-CALL PHARMACEUTICAL SALES SPECIALIST DR. PATEL AND SHE HAS SAID THAT THE PATIENT DOES NOT NEED TO BE TRANSFERRED OR ADMITTED AT THIS TIME, BUT NEEDS TO FOLLOW UP WITH A FLOORING SALES MANAGER SOON POSSIBLE TO RULE OUT OVARIAN CANCER OR ENDOMETRIAL CANCER. BASED ON HISTORY OF PRESENT ILLNESS, AND PHYSICAL EXAM, PATIENT WILL BE DISCHARGED HOME. DISCUSSED PLAN FOR DISCHARGE HOME WITH RX [ NAPROXEN 500 MG]. MEDICATION WARNINGS GIVEN. SHARED DECISION MAKING: DISCUSSED WITH PATIENT THAT THEIR WORKUP WAS NORMAL. PATIENT INSTRUCTED TO FOLLOW UP WITH PRIMARY CARE PROVIDER IN 1-2 DAYS FOR RE- EVALUATION OF SYMPTOMS. PATIENT VERBALIZES UNDERSTANDING TO RETURN TO ED FOR NEW OR WORSENING SYMPTOMS OR IF FOLLOW UP WITH PCP CANNOT BE OBTAINED. PATIENT FEELS COMFORTABLE GOING HOME AT THIS TIME. ALL QUESTIONS ADDRESSED AT TIME OF DISC HARGE. Images Reviewed?: Images reviewed and evaluated by me Time of 1ST Reevaluation: 15:34 Reevaluation 1ST: Unchanged Consultation: rhinologist (1520: I HAVE CONSULTED THE ON-CALL PHARMACEUTICAL SALES SPECIALIST DR. PATEL AND SHE HAS SAID THAT THE PATIENT DOES NOT NEED TO BE TRANSFERRED OR ADMITTED AT THIS TIME, BUT NEEDS TO FOLLOW UP WITH A FLOORING SALES MANAGER SOON POSSIBLE TO RULE OUT OVARIAN CANCER OR ENDOMETRIAL CANCER.) Patient Education/Counseling: Diagnosis, Treatment, Need For Follow Up Family Education/Counseling: Diagnosis, Treatment, Need For Follow Up Medical Screening: No EMC Exist At This Time Departure 1 Departure Time of Disposition: 15:34 Impression: Primary Impression: Vaginal bleeding Additional Impression: Uterine fibroid Qualified Codes: D25.9 - Leiomyoma of uterus, unspecified Disposition: HOME / SELF CARE / HOMELESS Condition: Stable Additional Instructions: FOLLOW UP WITH FLOORING SALES MANAGER SOON POSSIBLE. TAKE MEDICATIONS PRESCRIBED. RETURN TO ED FOR ANY NEW OR WORSENING SYMPTOMS. e-Prescriptions Naproxen (Naproxen) 500 Mg Tab 500 MG PO BID, #30 TAB Prov: VIJI MOON 05/19/25 Discharged With: Self, Spouse Critical Care Note Critical Care Time?: No Stability Stability form required: No I personally scribed for VIJI MOON ([email or web address]) on 05/19/25 at 13:27. Electronically submitted by Baljit Randall ([email or web address]). I personally scribed for VIJI MOON ([email or web address]) on 05/19/25 at 14:37. Electronically submitted by Baljit Randall ([email or web address]). I personally scribed for VIJI MOON ([email or web address]) on 05/19/25 at 15:19. Electronically submitted by Baljit Randall ([email or web address]). I personally scribed for VIJI MOON ([email or web address]) on 05/19/25 at 15:25. Electronically submitted by Baljit Randall ([email or web address]). I personally scribed for VIJI MOON ([email or web address]) on 05/19/25 at 15:26. Electronically submitted by Baljit Randall ([email or web address]). VIJI MOON May 19, 2025 13:27
[2025-05-19 14:04] LABS: Hematocrit 44.1 % (36.0-46.0); Hemoglobin 14.7 g/dL (12.2-16.2); Mean Corpuscular Hemoglobin 29.8 pg (28.0-32.0); Mean Corpuscular Volume 89.9 fL (80.0-100.0); Nucleated Red Blood Cells % 0.1 %
[2025-05-19 14:12] LABS: Chloride 107 mmol/L (98-107); Potassium 4.2 mmol/L (3.5-5.1); Sodium 140 mmol/L (136-145)
[2025-05-19 14:13] LABS: Anion Gap 12 (5-15); Calcium 9.0 mg/dL (8.7-10.4); Carbon Dioxide 21 mmol/L (20-31)
[2025-05-19 14:18] LABS: BUN/Creatinine Ratio 21.2 (10.0-20.0); Blood Urea Nitrogen 14 mg/dL (9-23); Glucose 83 mg/dL (74-106)
[2025-05-19 14:21] LABS: Urine Protein, UAD 2+ (Negative)
[2025-05-19 14:23] LABS: INR 0.99 (0.9-1.15); Prothrombin Time 10.5 sec (9.3-11.8)
--- NOTE | 2025-05-19 14:29 | DVH ---
INDICATION: VAGINAL BLEEDING TECHNIQUE: Multiple real-time grayscale transabdominal and transvaginal sonographic images along with color and duplex Doppler of the uterus and ovaries were obtained. COMPARISON: CT ABD PELVIS WO CONTRAST on DOS: 11/12/21 FINDINGS: The uterus measures 7.8 x 4.6 x 3.6 cm. The uterus is heterogeneous. There is a intrauterine mass measuring 1 cm suggestive of a fibroid. The endometrial stripe measures 0.9cm. The right ovary measures 2.8 x 2.2 x 1.4 cm. The left ovary measures 2.5 x 1.0 x 1.6 cm. Subsequent color and duplex Doppler interrogation of the ovaries demonstrated symmetric vascular flow to both ovaries, though this does not exclude the possibility of torsion due to the dual blood supply. IMPRESSION: Heterogeneous uterus. There is a intrauterine mass measuring 1 cm suggestive of a fibroid.
[2025-05-19] MEDS ORDERED: NAPR-746 PO (15:31)
== END 2025-05-19 15:36 | disposition home or self-care (01) ==
LOC: ER 12:21
DX: N93.9 Abnormal uterine and vaginal bleeding, unspecified (principal); D25.9 Leiomyoma of uterus, unspecified; E78.5 Hyperlipidemia, unspecified; I10 Essential (primary) hypertension; K21.9 Gastro-esophageal reflux disease without esophagitis; Z79.899 Other long term (current) drug therapy; Z90.49 Acquired absence of other specified parts of digestive tract
CPT/HCPCS: 36415; 76856; 80048; 81001; 85025; 85610

== ENCOUNTER 2025-06-20 08:13 | Emergency (ER) | payer OTHER, MEDICAID ==
[~2025-06-20] VITALS: Ht 157.5 cm; Wt 67.0 kg
[~2025-06-20 08:13] MED LIST changes: +NAPR-746 PO
--- NOTE | 2025-06-20 09:24 | ED.PDOC ---
History of Present Illness(SKN HPI Comments The patient presents with a two-day history of bumps all over the body with associated itching. The symptoms worsen with hot showers, with increased redness. On the morning of this visit, swelling began to involve the eyes and lips. The patient reports temporary relief of itching with calamine lotion, but symptoms recur. No one else is present at the appointment.The patient has a history of hyperlipidemia and hypertension, for which cholesterol and blood pressure medications have been taken for approximately one year. The patient is unsure if these are related to the current symptoms. The patient recalls eating salmon a few days before this visit, which may have been old, but states that the diet is otherwise unchanged. No additional allergies, family, or social history were discussed. Denies that the rash is painful, just itching Denies ever having this before Patient denies any fever, cough, difficulty swallowing, or shortness of breath Denies fever chills night sweats nausea vomiting diarrhea Denies persistent loss of appetite nor unintentional weight loss over the past 3 months Denies history of STI Denies cough and cold-like symptoms Denies recent travel Denies sick contact with similar rash Denies new topical creams/lotions/shampoos/detergents Denies noticing any insects Denies bruising bleeding anywhere Denies chronic skin issues or family history of skin issues Chief Complaint: Rash Time Seen by MD: 09:05 History of Present Illness: Nurses Notes, Medications, Allergies Allergies: Coded Allergies: NO KNOWN ALLERGIES (Unverified , 05/02/23) Home Meds Active Scripts Famotidine (Famotidine) 40 Mg Tab, 40 MG PO DAILY for 5 Days, #5 TAB 0 Refills Prov:GLEN BHAKTA NP 06/20/25 Diphenhydramine Hcl (BENADRYL CAPSULE) 25 Mg Cp, 25 MG PO DAILY PRN for 5 Days, #5 CAP 0 Refills Prov:GLEN BHAKTA NP 06/20/25 Prednisone (Prednisone) 20 Mg Tab, 40 MG PO DAILY for 5 Days, #10 TAB 0 Refills Prov:GLEN BHAKTA NP 06/20/25 Naproxen (Naproxen) 500 Mg Tab, 500 MG PO BID, #30 TAB Prov:VIJI MOON 05/19/25 Sucralfate (CARAFATE SUSP) 1 Gm/10 Ml Ss, 10 ML PO BID for 5 Days, #100 ML 1 Refill Prov:TEODORA ALY MD 04/22/25 Pantoprazole Sodium Sesquihydr (Protonix) 40 Mg Tab, 40 MG PO DAILY for 10 Days, #10 TAB Prov:TEODORA ALY MD 04/22/25 Diclofenac Sodium (Topical) (Diclofenac Sodium) 1 % Gel, 1 % TD QID PRN for 30 Days, #1 GEL Prov:MOISE [facility]MAN [facility] 04/21/23 Ibuprofen (Ibuprofen) 600 Mg Tab, 1 TAB PO TID PRN for 14 Days, #42 TAB Prov:MOISE NORMAN [facility] 04/21/23 Methocarbamol (Methocarbamol) 500 Mg Tab, 500 MG PO TID PRN for 14 Days, #42 TAB Prov:MOISE NORMAN [facility] 04/21/23 Information Source: Patient Mode of Arrival: Ambulatory Severity: Moderate Timing: Hours Duration: Since onset, Hours Prehospital treatment: None Location: Generalized Mechanism: Spontaneous Onset Developed: Rash Object: None Condition of Object: None Wound Type: None History of: None Associated Signs and Symptoms: None Past Medical History PAST MEDICAL HISTORY: GERD, High Lipids, HTN Surgical History: Cholecystectomy COOK BARBECUE History: Denies all COOK BARBECUE Hx Family History Family History: Reviewed,noncontributory to illness Social History Smoker: Non-Smoker Alcohol: Denies ETOH Use Drugs: Denies Drug Use Lives In: Home Constitutional: denies: chills, diaphoresis, fatigue, fever, malaise, sweats, weakness, others EENTM: denies: blurred vision, double vision, ear bleeding, ear discharge, ear drainage, ear pain, ear ringing, eye pain, eye redness, hearing loss, mouth pain, mouth swelling, nasal discharge, nose bleeding, nose congestion, nose pain, photophobia, tearing, throat pain, throat swelling, voice changes, others Respiratory: denies: cough, hemoptysis, orthopnea, SOB at rest, shortness of breath, SOB with excertion, stridor, wheezing, others Cardiovascular: denies: chest pain, dizzy spells, diaphoresis, Dyspnea on exertion, edema, irregular heart beat, left arm pain, lightheadedness, palpitations, PND, syncope, others Gastrointestinal: denies: abdomen distended, abdominal pain, blood streaked bowels, constipated, diarrhea, dysphagia, difficulty swallowing, hematemesis, melena, nausea, poor appetite, poor fluid intake, rectal bleeding, rectal pain, vomiting, others Genitourinary: denies: abnormal vagina bleeding, burning, dyspareunia, dysuria, flank pain, frequency, hematuria, incontinence, pain, , vagina discharge, urgency, others Neurological: denies: dizziness, fainting, headache, left sided numbness, left sided weakness, numbness, paresthesia, pre-existing deficit, right sided numbness, right sided weakness, seizure, speech problems, tingling, tremors, weakness, others Musculoskeletal: denies: back pain, gout, joint pain, joint swelling, muscle pain, muscle stiffness, neck pain, others Integumetry: reports: rash (generalized); denies: bruises, change in color, change in hair/nails, dryness, laceration, lesions, lumps, wounds, others Allergic/Immunocompromised: denies: Difficulty Healing, Frequent Infections, Hives, Itching, others Hematologic/Lymphatic: denies: anemia, blood clots, easy bleeding, easy bruising, swollen glands, others Endocrine: denies: excessive hunger, excessive sweating, excessive thirst, excessive urination, flushing, intolerance to cold, intolerance to heat, unexplained weight gain, unexplained weight loss, others Psychiatric: denies: anxiety, bipolar disorder, depression, hopeless, panic disorder, schizophrenia, sleepless, suicidal, others All Other Systems: Reviewed and Negative Physical Exam Exam Comments Scattered hives throughout the torso in the bilateral lower extremities. No airway obstructions General Appearance: No Apparent Distress, Normal HEENT: Normal ENT Inspection, Pharynx Normal, TMs Normal Neck: Full Range of Motion, Non-Tender, Normal, Normal Inspection Respiratory: Chest Non-Tender, Lungs Clear, No Accessory Muscle Use, No Respiratory Distress, Normal Breath Sounds Cardiovascular: No Edema, No JVD, No Murmur, No Gallop, Normal Peripheral Pulses, Regular Rate/Rhythm Breast Exam: Deferred Gastrointestinal: No Organomegaly, Non Tender, No Pulsatile Mass, Normal Bowel Sounds, Soft Genitalia: Deferred Pelvic: Deferred Rectal: Deferred Extremities: No calf tenderness, Normal capillary refill, Normal inspection, Normal range of motion, Non-tender, No pedal edema Musculoskeletal : Apperance: Normal Neurologic: Alert, broach setter II-XII nml as Tested, No Motor Deficits, Normal Affect, Normal Mood, No Sensory Deficits Cerebellar Function: Normal Reflexes: Normal Skin: Dry, Normal Color, Warm Lymphatic: No Adenopathy Was a procedure done? Was a procedure done?: No X-Ray, Labs, Meds, VS Vital Signs Date Time Temp Pulse Resp B/P (MAP) Pulse Ox O2 Delivery O2 Flow Rate FiO2 06/20/25 11:30 98.7 78 16 136/87 (103) 97 98.7 06/20/25 10:10 86 16 96 Room Air 06/20/25 10:10 98.3 86 16 148/89 (108) 96 98.3 06/20/25 08:15 98.4 90 12 151/96 95 98.4 Current Medications Medications (Trade) Dose Ordered Sig/Mike Route Start Time Stop Time Status Last Admin Methylprednisolone Sodium Succinate (Solu Medrol) 125 mg ONCE ONCE IM 06/20/25 09:45 06/20/25 09:46 DC 06/20/25 09:46 Diphenhydramine HCl (Benadryl Capsule) 25 mg ONCE ONCE PO 06/20/25 09:45 06/20/25 09:46 DC 06/20/25 09:46 Famotidine (Pepcid Tablet) 20 mg ONCE ONCE PO 06/20/25 09:45 06/20/25 09:46 DC 06/20/25 09:45 X-Ray, Labs, Meds, VS Comment Patient arrives alert and oriented, ABC's intact, afebrile, vital signs stable, saturating well in room air Pt presents ED for an allergic reaction. Solu-Medrol and Pepcid and Benadryl administered in ED for treatment. Patient reports significant improvement in symptoms following treatment. Patient was monitored in the ED for an extended amount of time. Medrol Dosepak prescribed for additional treatment. Follow-up with PCP in 1 to 2 days. Patient needs motorcycle police referral for further testing Return to ED if symptoms persist, or sooner if symptoms worsen Patient is stable for discharge at this time. External notes reviewed. Test results and diagnostic imaging interpreted. All diagnostic findings, discharge care, education and instructions provided Follow-up with PCP in 2 to 3 days Patient verbalized understanding and agreed to treatment plan Vital signs stable, afebrile, no acute distress noted Patient ambulatory with strong steady gait Advised to return precautions for any new or worsening symptoms, return to ER immediately for re-evaluation Patient is aware that the purpose of this visit was for an acute medical emergency requiring emergent stabilization. Chronic conditions, including malignancies have not been ruled out. Patient is instructed to follow up with PCP as directed and discharge instructions for continued care and workup. If unable to arrange follow-up, patient is to return to the emergency department for reassessment. Patient (parent or legal guardian if applicable) was given verbal and written discharge instructions and acknowledges understanding. Additional MDM Review of External, Non-ED records: External records reviewed. Discussion with independent historian (EMS, family) history obtained from the patient/parents (if applicable) at bedside Chronic conditions affecting care: None Social determinants of health affecting care: None Consideration of admission (observation or admission): I considered escalation of care to admission for this patient, however given the reassuring workup, the patient is safe for outpatient management. Discussion with the Radiology: No Tests considered but not performed: Prescription medication considered but not given: Time of 1ST Reevaluation: 09:35 Reevaluation 1ST: Improved Patient Education/Counseling: Diagnosis, Treatment, Prognosis Family Education/Counseling: No Family Present SEPSIS Sepsis Screen Date sepsis recognized/suspect: Jun 20, 2025 Time Sepsis recognized/suspect: 815 Recent Procedure: No On Antibiotic Therapy: No Respiratory Rate >20: No Heart Rate >90: No Temp<36 C (96.8 F) or >38.3 C: No SBP <90 or MAP <65 mmHG: No New Acute Mental Status Change: No Is the patient on CPAP, BIPAP,: No Vital Signs Date Time Temp Pulse Resp B/P (MAP) Pulse Ox O2 Delivery O2 Flow Rate FiO2 06/20/25 11:30 98.7 78 16 136/87 (103) 97 98.7 06/20/25 10:10 86 16 96 Room Air 06/20/25 10:10 98.3 86 16 148/89 (108) 96 98.3 06/20/25 08:15 98.4 90 12 151/96 95 98.4 Departure 1 Departure Time of Disposition: 11:22 Impression: Primary Impression: Allergic reaction Qualified Codes: T78.40XA - Allergy, unspecified, initial encounter Disposition: HOME / SELF CARE / HOMELESS Condition: Stable e-Prescriptions Famotidine (Famotidine) 40 Mg Tab 40 MG PO DAILY for 5 Days, #5 TAB 0 Refills Prov: GLEN BHAKTA NP 06/20/25 Diphenhydramine Hcl (BENADRYL CAPSULE) 25 Mg Cp 25 MG PO DAILY PRN for 5 Days, #5 CAP 0 Refills Prov: GLEN BHAKTA NP 06/20/25 Prednisone (Prednisone) 20 Mg Tab 40 MG PO DAILY for 5 Days, #10 TAB 0 Refills Prov: GLEN BHAKTA NP 06/20/25 Critical Care Note Critical Care Time?: No Stability Stability form required: No Heart Score Heart Score: Heart Score Response (Comments) Value History N/A 0 EKG N/A 0 Age N/A 0 Risk Factors N/A 0 Troponin N/A 0 Total 0 I personally scribed for GLEN BHAKTA NP ([email or web address]) on 06/20/25 at 09:24. Electronically submitted by Nickolas Balderrama ([employer]). I personally scribed for GLEN BHAKTA NP ([email or web address]) on 06/20/25 at 09:42. Electronically submitted by Nickolas Balderrama ([employer]). GLEN BHAKTA NP Jun 20, 2025 09:24
[2025-06-20] MEDS: FAMOTIDINE 20 MG TAB PO ONE (09:45)
[2025-06-20] MEDS: methylPREDNISolone SOD SUCC 125 MG/2 ML VL IM ONE (09:46)
[2025-06-20] MEDS ORDERED: FAMO40TA7 PO (11:24)
[2025-06-20] MEDS ORDERED: DIPH25CA51 PO (11:24)
[2025-06-20] MEDS ORDERED: PRED20TA2 PO (11:24)
[2025-06-20 11:30] VITALS: BP 136/87; PULSE 78; RESP 16; TEMP 98.7; O2SAT 97
== END 2025-06-20 11:31 | disposition home or self-care (01) ==
LOC: ER 08:13
DX: T78.40XA Allergy, unspecified, initial encounter (principal); E78.5 Hyperlipidemia, unspecified; I10 Essential (primary) hypertension; Z79.899 Other long term (current) drug therapy; Z90.49 Acquired absence of other specified parts of digestive tract; Z79.52 Long term (current) use of systemic steroids; X58.XXXA Exposure to other specified factors, initial encounter
CPT/HCPCS: 96372; 99283; J2919